=== PATIENT | male | born 1950 | race Caucasian/White ===

== ENCOUNTER 2016-11-27 09:37 | Observation (INO) | payer MEDICARE, OTHER ==
[~2016-11-27] VITALS: Ht 177.8 cm; Wt 101.8 kg
[~2016-11-27 09:37] MED LIST: ACTIGALL300 M1 PO; ADVIL MIGRAINE200 MG; ALDACTONE25 M1 PO; ALDACTONE50 MG; AMBIEN10 MG; ARICEPT10 MG/TAB PO; ASPIRIN EC81 MG PO; B122500 MCG; BENZONATATE100 M1 PO; BISA-LAX5 M1 PO; CARDURA8 M1 PO; CERTAVITE-ANTI1 EACH PO; CHLORDIAZEPOXID25 M1 PO; CILOSTAZOL100 M1 PO; CILOSTAZOL100 MG PO; CITRATE OF MAG296 ML PO; COLACE100 M1 PO; CONSTULOSE10 G/15 ML; CULTURELLE1 EAC1 PO; CYCLOBENZAPRINE10 M1 PO; CYCLOBENZAPRINE5 M1 PO; DOXAZOSIN MESYLA4 MG PO; EAC PO; EFFEXOR XR150 MG PO; EFFEXOR XR75 M1 PO; FERROUS SU325 ( 65 ) PO; FLAGYL500 M1 PO; FLOMAX0.4 M1 PO; FLOMAX0.4 MG; FLOMAX0.4 MG PO; FOLIC ACID1 M1 PO; FOLIC ACID1 MG; FOLIC ACID1 MG PO; FUROSEMIDE40 MG; GABAPENTIN300 MG; HEMORRHOIDAL P1 EAC1 TP; HYDROCODON-ACE1 EA15 PO; HYDROCODON-ACE1 EAC5 PO; HYDROCODONE/APA1 CAP; HYDROXYZINE HCL25 M1 PO; INDERAL20 MG; INDERAL20 MG PO; KEFLEX500 M4 PO; LACTULOSE10 G/15 ML PO; LASIX20 MG; LIBRIUM; LOPRESSOR50 M1 PO; LYRICA150 MG; MAGNESIUM OXID250 MG; MELOXICAM15 MG PO; MELOXICAM7.5 M1 PO; METOPROLOL TART25 M1 PO; MIRALAX17 G2 PO; MIRTAZAPINE30 M1 PO; MULTIVITAMIN W/1 T PO; MULTIVITAMIN1 CAP; MYOFLEX60 G1 TP; NEURONTIN300 M1 PO; NEURONTIN300 MG PO; NICODERM CQ1 EAC2 TD; NICOTINE LOZENGE2 M1 BC; NICOTINE LOZENGE4 MG PO; NORCO 10/325 TA1 TAB PO; NORCO 5-325 TA1 EACH PO; NORCO 5/325 TAB1 TAB PO; OXYBUTYNIN CHLOR5 M2 PO; OXYCONTIN20 MG; PLAVIX; PLAVIX75 MG; PREDNISONE10 MG PO; PRILOSEC20 MG; PROAIR HFA8.5 GM IH; PROTONIX40 M2 PO; PROTONIX40 MG PO; QUETIAPINE FUM100 M1 PO; RANITIDINE HCL150 M2 PO; RESTORIL15 M1 PO; ROBITUSSIN-DM120 ML; SEROQUEL50 M1 PO; SPIRONOLACTONE25 M2 PO; SPIRONOLACTONE25 MG PO; SYNTHROID50 MC1 PO; SYNTHROID75 MC1 PO; TOPROL XL25 M1 PO; TYLENOL ARTHRI650 MG; ULTRAM50 MG; VALIUM5 MG PO; VITAMIN B-1100 M3 PO; VITAMIN B-12500 MCG PO; VITAMIN B-150 MG; VITAMIN B1100 MG; VITAMIN B1100 MG PO; VITAMIN B12500 MCG; ZANTAC150 M1 PO; ZOFRAN ODT4 MG PO; ZOFRAN4 M2 PO; [UNRECOGNIZED DRUG - OTHER] PO
[2016-11-27] MEDS ORDERED: CARDURA8 M1 PO (09:44)
[2016-11-27] MEDS ORDERED: PROPRANOLOL HCL40 M2 PO (09:46)
[2016-11-27] MEDS ORDERED: NORCO 10-325 T1 EACH PO (09:46)
[2016-11-27] MEDS ORDERED: OXYBUTYNIN CHLOR5 M2 PO (09:48)
[2016-11-27] MEDS ORDERED: FOLIC ACID1 M1 PO (10:13)
[2016-11-27] MEDS ORDERED: MECLIZINE HCL25 M3 PO (10:14)
[2016-11-27 11:04] LABS: BASO % 0.2 % (0-2); EOS % 0.5 % (0-7); HCT-HEMATOCRIT 39.2 % (36.0-53.5); HGB-HEMOGLOBIN 12.7 gm/dl (13.5-17.0); IMMATURE GRANULOCYTES ABSOLUTE 0.01 tho/cmm (0-0.03); IMMATURE GRANULOCYTES PERCENT 0.2 % (0-0.3); LYMPH % 17.2 % (20-45); LYMPH ABSOLUTE COUNT 0.7 tho/cmm (0.8-4.5); MCHC MEAN CORPUSCULAR HGB CONC 32.4 % (32.0-36.0); MCV (MEAN CELL VOLUME) 83.4 fl (82.0-96.0); MEAN PLATELET VOLUME 10.2 cmc (9.4-12.4); MONO % 12.2 % (0-12); MONOCYTE ABSOLUTE COUNT 0.5 tho/cmm (0.0-1.2); NEUTROPHIL ABSOLUTE COUNT 2.8 tho/cmm (1.6-8.0); NEUTROPHIL-AUTOMATED 2.8 tho/cmm (1.6-8.0); NEUTROPHILS % 69.7 % (40-80); PLATELET COUNT 77 tho/cmm (150-450); RED CELL DISTRIBUTION WIDTH 17.4 % (12.4-16.4)
[2016-11-27 11:19] LABS: ALB/GLOB RATIO 0.7 (0.8-2.0); ALBUMIN 3.4 g/dl (3.5-5.0); ALKALINE PHOSPHATASE 84 U/L (33-138); ALT/SGPT 22 U/L (12-78); BILIRUBIN,TOTAL 1.1 mg/dl (0.0-1.5); BLOOD UREA NITROGEN 7 mg/dl (6-24); CALCIUM 8.3 mg/dl (8.5-10.5); CARBON DIOXIDE-VENOUS 27 mmol/L (22-32); CHLORIDE 102 mmol/l (96-110); CREATININE 1.09 mg/dl (0.60-1.30); GLUCOSE 130 mg/dL (70-110); LIPASE 58 U/L (73-393); SODIUM 139 mmol/L (135-145); eGFR VALUE FOR BLACK 83 mL/Min
[2016-11-27 11:28] LABS: ANION GAP 14 mmol/L (0-20); AST/SGOT 63 U/L (10-40); POTASSIUM 3.9 mmol/L (3.7-5.1)
[2016-11-27 12:11] LABS: URINE BILIRUBIN NEGATIVE (NEG); URINE BLOOD NEGATIVE (NEG); URINE GLUCOSE (UA) NEGATIVE (NEG); URINE KETONE MODERATE (NEG); URINE LEUKOCYTE ESTERASE NEGATIVE (NEG); URINE NITRITE NEGATIVE (NEG); URINE PROTEIN MODERATE (NEG)
[2016-11-27 12:18] LABS: URINE APPEARANCE CLEAR; URINE COLOR YELLOW
[2016-11-27 12:20] LABS: URINE EPITHELIAL CELLS 0-2 /[HPF] (0-10); URINE RBC 0 /[HPF] (0-5); URINE WBC 0 /[HPF] (0-5)
[2016-11-28 06:23] LABS: BASO % 0.9 % (0-2); EOS % 3.2 % (0-7); EOSINOPHIL ABSOLUTE COUNT 0.1 tho/cmm (0.0-0.7); HCT-HEMATOCRIT 32.9 % (36.0-53.5); HGB-HEMOGLOBIN 10.3 gm/dl (13.5-17.0); LYMPH % 37.4 % (20-45); LYMPH ABSOLUTE COUNT 1.3 tho/cmm (0.8-4.5); MCH (MEAN CORPUSCULAR HGB) 26.6 pg (28.0-32.0); MCHC MEAN CORPUSCULAR HGB CONC 31.3 % (32.0-36.0); MONO % 13.2 % (0-12); MONOCYTE ABSOLUTE COUNT 0.5 tho/cmm (0.0-1.2); NEUTROPHIL ABSOLUTE COUNT 1.6 tho/cmm (1.6-8.0); NEUTROPHIL-AUTOMATED 1.6 tho/cmm (1.6-8.0); NEUTROPHILS % 45.3 % (40-80); PLATELET COUNT 70 tho/cmm (150-450); RED BLOOD COUNT 3.87 mil/cmm (4.40-5.70); RED CELL DISTRIBUTION WIDTH 17.7 % (12.4-16.4); WHITE BLOOD COUNT 3.4 tho/cmm (4.0-10.0)
[2016-11-28 06:33] LABS: ANION GAP 9 mmol/L (0-20); BLOOD UREA NITROGEN 6 mg/dl (6-24); CALCIUM 7.5 mg/dl (8.5-10.5); CARBON DIOXIDE-VENOUS 29 mmol/L (22-32); CHLORIDE 103 mmol/l (96-110); CREATININE 1.18 mg/dl (0.60-1.30); GLUCOSE 96 mg/dL (70-110); POTASSIUM 3.1 mmol/L (3.7-5.1); SODIUM 138 mmol/L (135-145); eGFR VALUE FOR BLACK 75 mL/Min
[2016-11-29 04:51] LABS: BASO % 0.9 % (0-2); EOS % 3.3 % (0-7); EOSINOPHIL ABSOLUTE COUNT 0.1 tho/cmm (0.0-0.7); HCT-HEMATOCRIT 32.1 % (36.0-53.5); HGB-HEMOGLOBIN 10.1 gm/dl (13.5-17.0); IMMATURE GRANULOCYTES ABSOLUTE 0.01 tho/cmm (0-0.03); IMMATURE GRANULOCYTES PERCENT 0.3 % (0-0.3); LYMPH % 30.8 % (20-45); MCH (MEAN CORPUSCULAR HGB) 27.1 pg (28.0-32.0); MCHC MEAN CORPUSCULAR HGB CONC 31.5 % (32.0-36.0); MCV (MEAN CELL VOLUME) 86.1 fl (82.0-96.0); MEAN PLATELET VOLUME 10.2 cmc (9.4-12.4); MONO % 10.6 % (0-12); MONOCYTE ABSOLUTE COUNT 0.4 tho/cmm (0.0-1.2); NEUTROPHIL ABSOLUTE COUNT 1.8 tho/cmm (1.6-8.0); NEUTROPHIL-AUTOMATED 1.8 tho/cmm (1.6-8.0); NEUTROPHILS % 54.1 % (40-80); PLATELET COUNT 61 tho/cmm (150-450); RED BLOOD COUNT 3.73 mil/cmm (4.40-5.70); RED CELL DISTRIBUTION WIDTH 17.7 % (12.4-16.4); WHITE BLOOD COUNT 3.3 tho/cmm (4.0-10.0)
[2016-11-29 05:07] LABS: ALBUMIN 2.8 g/dl (3.5-5.0); ALKALINE PHOSPHATASE 57 U/L (33-138); ALT/SGPT 18 U/L (12-78); ANION GAP 9 mmol/L (0-20); AST/SGOT 29 U/L (10-40); BLOOD UREA NITROGEN 7 mg/dl (6-24); CALCIUM 7.9 mg/dl (8.5-10.5); CARBON DIOXIDE-VENOUS 31 mmol/L (22-32); CHLORIDE 105 mmol/l (96-110); CREATININE 0.84 mg/dl (0.60-1.30); GLUCOSE 82 mg/dL (70-110); POTASSIUM 3.7 mmol/L (3.7-5.1); SODIUM 141 mmol/L (135-145); eGFR VALUE FOR BLACK >90 mL/Min
[2016-11-29 05:28] LABS: ALB/GLOB RATIO 0.9 (0.8-2.0); BILIRUBIN,TOTAL 0.4 mg/dl (0.0-1.5)
[2016-11-29] MEDS ORDERED: XANAX0.5 M1 PO (13:10)
== END 2016-11-29 15:35 ==
LOC: EDMED → EDBD 09:37 → EMR2 15:27 → CAR1 15:27
PROVIDERS: Emergency Medicine; Nurse Practitioner; Nurse Practitioner Acute Care; ADMIT Hospitalist
DX: R10.9 Unspecified abdominal pain (principal); K70.30 Alcoholic cirrhosis of liver without ascites; R16.2 Hepatomegaly with splenomegaly, not elsewhere classified; D69.6 Thrombocytopenia, unspecified; I10 Essential (primary) hypertension; I73.9 Peripheral vascular disease, unspecified; E78.5 Hyperlipidemia, unspecified; K55.1 Chronic vascular disorders of intestine; M10.9 Gout, unspecified; E03.9 Hypothyroidism, unspecified; F32.9 Major depressive disorder, single episode, unspecified; F41.9 Anxiety disorder, unspecified; R42 Dizziness and giddiness; K21.9 Gastro-esophageal reflux disease without esophagitis; Z98.890 Other specified postprocedural states; Z89.512 Acquired absence of left leg below knee; Z79.82 Long term (current) use of aspirin; Z79.899 Other long term (current) drug therapy; Z79.52 Long term (current) use of systemic steroids
CPT/HCPCS: A9537; C9113; G0378; G8978-GP-CJ; G8979-GP-CJ; G8980-GP-CJ; J1170; J2270; J2405; J7030; Q9967